=== PATIENT | male | born 1975 | race Caucasian/White ===

== ENCOUNTER 2017-03-19 18:46 | Emergency (ER) | payer OTHER ==
[2017-03-19 18:54] VITALS: BP 144/77
== END 2017-03-19 21:21 | disposition home or self-care (01) ==
LOC: ED 18:46
DX: S60.511A Abrasion of right hand, initial encounter (principal); S69.92XA Unspecified injury of left wrist, hand and finger(s), initial encounter; W50.0XXA Accidental hit or strike by another person, initial encounter; Y93.89 Activity, other specified; Y92.89 Other specified places as the place of occurrence of the external cause; Y99.8 Other external cause status
CPT/HCPCS: 90715; A4570